=== PATIENT | male | born 1950 ===

== ENCOUNTER → 2017-08-18 | Day surgery (SDC) | payer OTHER ==
[~2017-08-18] MED LIST: ALLOPURINOL300 MG PO; CARVEDILOL12.5 MG PO; COLCHICINE0.6 M1 PO; FAMOTIDINE40 MG PO; GLIMEPIRIDE2 MG PO; LOSARTAN POTASS50 MG PO; NEURONTIN300 MG PO; PLAVIX75 MG PO; [UNRECOGNIZED DRUG - OTHER] PO
== END | disposition home or self-care (01) ==
LOC: ADM 08-11 10:45 → CIR.AMB 10:45
DX: M13.872 Other specified arthritis, left ankle and foot (principal); M65.872 Other synovitis and tenosynovitis, left ankle and foot